=== PATIENT | female | born 1980 | race Caucasian/White ===

== ENCOUNTER 2021-11-29 19:38 | Emergency (ER) | payer SELFPAY ==
--- NOTE | 2021-11-29 19:41 | ED.EAR ---
HPI - Ear Problem General Chief complaint: Ear Stated complaint: Ear Pain Time Seen by Provider: 11/29/21 19:52 Source: patient and RN notes reviewed Mode of arrival: ambulatory Limitations: no limitations History of Present Illness HPI Narrative: 41-year-old female presents with concern for 1 month history of right ear pain and several month history of sinus congestion and pain. Reports history with sinus problems. She denies recent cough, shortness of breath, fever, bodies, chills, sweats. Denies known contacts. Reports several [id number] interventions without relief Complaint: ear pain Related Data Allergies Allergy/AdvReac Type Severity Reaction Status Date / Time clindamycin Allergy Mild Other Verified 11/29/21 19:50 Review of Systems Review of Systems: CONSTITUTIONAL: Denies malaise, chills, sweats, or fever. EYES: Denies visual changes, redness, or discharge. ENT: Denies rhinorrhea. Reports congestion, sinus pain, otalgia. Denies sore throat. CARDIOVASCULAR: Denies chest pain, palpitations, or edema. RESPIRATORY: Denies cough. Denies dyspnea. GASTROINTESTINAL: Denies abdominal pain, nausea, vomiting, diarrhea SKIN: Denies rash or itching. MUSCULOSKELETAL: Denies myalgia. NEUROLOGIC: Denies headache. All systems reviewed & are unremarkable except as noted in HPI and below PMFSH Comments At time of signature, agree with nursing past medical, surgical, social and family history. There is no relevant family history pertinent to the presenting complaint Exam Narrative: GENERAL: Well-appearing, well-nourished, and in no acute distress. HEAD: Normocephalic EYES: PERRLA, conjunctivae clear ENT: Nares clear, turbinates edematous and erythematous, clear discharge. Mucous membranes moist. TM pearly jordan with dull light reflex bilaterally; no tragal tenderness. Oropharynx not erythematous without lesions. Tonsils not enlarged and without exudate, no drooling, no hoarseness, no trismus, uvula midline. NECK: Supple. No lymphadenopathy CHEST: Clear to auscultation, breath sounds equal. No wheezing, rhonchi, rales, or stridor. No respiratory distress, speaks in full sentences. HEART: Regular rate and rhythm. No murmur heard. SKIN: Warm, dry, no rash. NEURO: Alert and oriented x3. PSYCH: Normal mood and affect Course Course Emergency Course: Patient is aware of diagnosis, understands and agrees to treatment plan. Anticipatory guidance given. Patient agrees to follow-up as directed and is aware of reasons to seek care at the emergency department. Portions of this record may have been created with voice recognition software Vital Signs Vital signs: Reviewed. Medical Decision Making MDM Narrative Medical decision making narrative: Differential diagnosis considered: Metz virus, strep pharyngitis, allergic rhinitis, upper respiratory tract infection, sinusitis, rhinosinusitis, nasopharyngitis. viral pharyngitis, otitis media, otitis externa, pneumonia, bronchitis, viral cough syndrome, viral syndrome, and influenza. Exam findings show no acute concerns or changes; patient is non-toxic appearing and is in no distress. Patient is appropriate for outpatient treatment and follow-up. Critical Care Time Critical Care Time Critical Care Time: No Discharge Plan Discharge Clinical Impression: Acute bacterial sinusitis Patient Disposition: Home, Self-Care Condition: Stable Instructions: Antibiotic Form, Sinusitis (ED) Additional Instructions: Take antibiotics and steroids as directed Nonprescription pain medications, such as acetaminophen (eg, Tylenol) or ibuprofen (eg, Motrin, Advil), are recommended for pain. Medications to thin secretions (such as guaifenesin) may help to clear mucus. Please follow-up with your primary care doctor for reevaluation upon completion of the antibiotics. If you cannot follow-up with your primary care doctor please go to the ED for any urgent issues. If you have any worsening of
[2021-11-29 19:44] VITALS: BP 149/96; PULSE 86; RESP 18; TEMP 37.1; O2SAT 98
[2021-11-29 19:51] VITALS: BP 149/96; PULSE 86; RESP 18; TEMP 37.1; O2SAT 98
== END 2021-11-29 20:00 | disposition home or self-care (01) ==
PROVIDERS: Emergency Provider Nurse Practitioner
DX: J01.90 Acute sinusitis, unspecified (principal)
CPT/HCPCS: 99213; G0463

== ENCOUNTER 2022-09-24 17:47 | Emergency (ER) | payer OTHER, SELFPAY ==
[2022-09-24 18:00] VITALS: BP 169/101; PULSE 78; RESP 20; TEMP 36.8; O2SAT 100
--- NOTE | 2022-09-24 18:00 | ED.URI ---
HPI - URI/Sore Throat General Chief Complaint: Upper Respiratory Infection Stated Complaint: Sore Throat Time Seen by Provider: 09/24/22 18:00 Source: patient and RN notes reviewed History of Present Illness HPI Narrative: Patient is a 42-year-old female who presents the urgent care with complaints of sore throat and right ear pain for the last week. Patient denies any fever, nausea or vomiting. States that she has been taking Benadryl for her symptoms. Patient states that she does have a chronic sinusitis but denies of any sinus surgery. States that she had a negative COVID test at home. No other acute complaints. No acute distress noted. Patient aware of the plan of care. Some parts of this dictation were generated by voice recognition software and may contain typographical and/or grammatical inaccuracies. Related Data Home Medications Medication Instructions Recorded Confirmed No Home Medications 09/24/22 09/24/22 Allergies Allergy/AdvReac Type Severity Reaction Status Date / Time clindamycin Allergy Mild Other Verified 09/24/22 18:21 Review of Systems Review of Systems: CONSTITUTIONAL: Denies fever, chills, or sweats. EYES: Denies visual changes, redness, or discharge. ENT: Reports of chronic postnasal drainage and sore throat with right otalgia CARDIOVASCULAR: Denies chest pain, palpitations, or edema. RESPIRATORY: Denies cough or dyspnea. GASTROINTESTINAL: Denies abdominal pain, nausea, vomiting, or diarrhea. GENITOURINARY: Denies dysuria or hematuria. SKIN: Denies rash or itching. MUSCULOSKELETAL: Denies back pain, joint pain, or myalgia. NEUROLOGIC: Denies headache, numbness, or weakness. All other systems reviewed are negative, except as documented in HPI. PMFSH Comments At the time of my signature, I reviewed and agree with the nursing past medical, surgical, social, and family history. There is no relevant family history pertinent to the patient complaint. Exam Narrative: GENERAL: This is a well-nourished, well-developed patient, in no apparent distress. HEAD: normocephalic, atraumatic. EYES: PERRL. Sclera clear/white. Vision is grossly intact. EARS: External ears normal, auditory canals clear and without drainage, mild bilateral station tube dysfunction TMs normal without perforation. Hearing grossly intact. NOSE: External nose normal with no obvious nasal discharge, nares without redness, no rhinorrhea. THROAT: Mucous membranes moist, posterior pharynx clear. Moderate postnasal drainage NECK: Neck supple CARDIOVASCULAR: Regular rate and rhythm without murmurs, gallops, or rubs. RESPIRATORY: Clear to auscultation. Breath sounds equal bilaterally. No wheezes, rales, or rhonchi. SKIN: warm, intact with no suspicious lesions or rash, good texture and turgor. NEURO: awake, alert, and oriented to person, place and time. There were no obvious focal neurologic abnormalities. EXTREMITIES: No clubbing, cyanosis. Mild nonpitting right lower extremity edema that is recurrent and chronic Course Course Level of Care: Express Care Visit Vital Signs Vital signs: Vital Signs Temperature 98.3 F 09/24/22 18:00 Pulse Rate 78 09/24/22 18:00 Respiratory Rate 20 09/24/22 18:00 Blood Pressure 169/101 H 09/24/22 18:00 Pulse Oximetry 100 09/24/22 18:00 Oxygen Delivery Room Air 09/24/22 18:00 Temperature 98.3 F 09/24/22 18:21 Pulse Rate 78 09/24/22 18:21 Respiratory Rate 20 09/24/22 18:21 Blood Pressure 169/101 H 09/24/22 18:21 Pulse Oximetry 100 09/24/22 18:21 Oxygen Delivery Room Air 09/24/22 18:21 Reviewed-patient is informed that they may have pre-hypertension or hypertension based on a blood pressure reading in the department. I recommend the patient call the primary care provider listed on their discharge instructions or a physician of their choice this week to arrange follow-up for further evaluation of possible pre-hypertension or hypertension. MDM - URI/Sore Throat
[2022-09-24 18:21] VITALS: BP 169/101; PULSE 78; RESP 20; TEMP 36.8; O2SAT 100
== END 2022-09-24 18:35 | disposition home or self-care (01) ==
PROVIDERS: Emergency Provider Nurse Practitioner Family
DX: J32.9 Chronic sinusitis, unspecified (principal); J02.9 Acute pharyngitis, unspecified
CPT/HCPCS: 87081; 87880; 99213; G0463

== ENCOUNTER 2023-09-01 17:30 | Emergency (ER) | payer OTHER, SELFPAY ==
[2023-09-01 17:36] VITALS: BP 151/92; PULSE 98; RESP 18; TEMP 37.1; O2SAT 100
--- NOTE | 2023-09-01 17:45 | ED.GENADULT ---
HPI - General Adult General Chief complaint: Unspecified Stated complaint: Hemorroid Flare up History of Present Illness HPI narrative: Patient presents with a hemorrhoid flare. Patient states she has a history of hemorrhoids and has had recent increase liquid stools and has caused inflammation to hemorrhoids. Denies any blood in stools no abdominal pain no rectal bleeding. Patient states she recently started new protein shakes were which were high and magnesium and caused her to have diarrhea stools. Patient has discontinued the protein shakes and has started on a bland diet.. Related Data Allergies Allergy/AdvReac Type Severity Reaction Status Date / Time clindamycin Allergy Mild Other Verified 09/01/23 17:32 Review of Systems Review of Systems: CONSTITUTIONAL: Denies fever, chills, or sweats. EYES: Denies visual changes, redness, or discharge. ENT: Denies rhinorrhea, congestion, sore throat, or otalgia. CARDIOVASCULAR: Denies chest pain, palpitations, or edema. RESPIRATORY: Denies cough or dyspnea. GASTROINTESTINAL: Denies abdominal pain, nausea, vomiting, or diarrhea. GENITOURINARY: Denies dysuria or hematuria. SKIN: Denies rash or itching. MUSCULOSKELETAL: Denies back pain, joint pain, or myalgia. NEUROLOGIC: Denies headache, numbness, or weakness. PSYCHIATRIC: Denies anxiety or depression. PMFSH Comments At time of signature, agree with nursing past medical, surgical, social and family history. There is no relevant family history pertinent to the presenting complaint Exam Narrative: GENERAL: Well-appearing, well-nourished, and in no acute distress. HEAD: Normocephalic, atraumatic. EYES: PERRLA and EOMI. ENT: Nares clear, no rhinorrhea or epistaxis. Mucous membranes moist. NECK: Supple. CHEST: Clear to auscultation. No respiratory distress. HEART: Regular rate and rhythm. No murmur heard. Normal peripheral pulses. ABDOMEN: Soft, nontender, nondistended, normal active bowel sounds. EXTREMITIES: Normal range of motion. No edema. SKIN: Warm, dry, no rash. NEURO: No focal deficits. Alert and oriented x3. Marsha Coma Scale Eye Opening: Spontaneous 4 Marsha Coma Scale Motor: Obeys Commands 6 Marsha Coma Scale Verbal: Oriented 5 [place] Coma Scale Total 15 GI: Rectal Exam: normal sphincter tone and hemorrhoids (swollen external hemorrhoid ) Course Course Level of Care: Express Care Visit Vital Signs Vital signs: Vital Signs Temperature 37.1 C 09/01/23 17:36 Pulse Rate 98 09/01/23 17:36 Respiratory Rate 18 09/01/23 17:36 Blood Pressure 151/92 H 09/01/23 17:36 Pulse Oximetry 100 09/01/23 17:36 Oxygen Delivery Room Air 09/01/23 17:36 Temperature 37.1 C 09/01/23 17:36 Pulse Rate 98 09/01/23 17:36 Respiratory Rate 18 09/01/23 17:36 Blood Pressure 151/92 H 09/01/23 17:36 Pulse Oximetry 100 09/01/23 17:36 Oxygen Delivery Room Air 09/01/23 17:36 Please EDDIE schedule a followup visit with your personal physician for further evaluation and treatment. Including recheck and discussion of your blood pressure. If your symptoms persist, change or worsen significantly before you can contact your personal physician then please, without delay, go to the emergency department for further evaluation Medical Decision Making Vital Signs Vital Signs: Vital Signs Temperature 37.1 C 09/01/23 17:36 Pulse Rate 98 09/01/23 17:36 Respiratory Rate 18 09/01/23 17:36 Blood Pressure 151/92 H 09/01/23 17:36 Pulse Oximetry 100 09/01/23 17:36 Oxygen Delivery Room Air 09/01/23 17:36 Temperature 37.1 C 09/01/23 17:36 Pulse Rate 98 09/01/23 17:36 Respiratory Rate 18 09/01/23 17:36 Blood Pressure 151/92 H 09/01/23 17:36 Pulse Oximetry 100 09/01/23 17:36 Oxygen Delivery Room Air 09/01/23 17:36 Discharge Plan Discharge Clinical Impression: Acute hemorrhoid Patient Disposition: Home, Self-Care Condition: Stable Instructions:
== END 2023-09-01 17:50 | disposition home or self-care (01) ==
PROVIDERS: Emergency Provider Nurse Practitioner Family
DX: K64.9 Unspecified hemorrhoids (principal)
CPT/HCPCS: 99213; G0463

== ENCOUNTER 2023-10-07 12:48 | Emergency (ER) | payer OTHER, SELFPAY ==
--- NOTE | ~2023-10-07 | XR_ITS ---
EXAMINATION: XR soft tissue neck INDICATION: Neck pain TECHNIQUE: Three views of the neck soft tissues are obtained. COMPARISON: None available FINDINGS: The neck soft tissues are unremarkable. The epiglottis appears normal in size. There is mil d cervical spondylosis. IMPRESSION: 1. Unremarkable neck soft tissues. Reviewed, dictated and finalized at location B. 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
[2023-10-07 12:54] VITALS: BP 188/108; PULSE 93; RESP 20; TEMP 36.9; O2SAT 98
--- NOTE | 2023-10-07 13:31 | ED.GENADULT ---
HPI - General Adult General Chief complaint: Upper Respiratory Infection Stated complaint: ear/throat Source: patient Mode of arrival: ambulatory History of Present Illness HPI narrative: [age] year old female presented for complaint of pain under the right jaw radiating to the right ear intermittently for 5 years. States after right upper wisdom tooth was extracted 5 years ago she continued to have pain, then she had some improvement to the area after the remaining portion of the wisdom tooth was 'coughed up' 2 years ago. Patient has seen 8 dentists, ENT, and back joiner since then for this complaint. Concerned that no one is helping her. Requesting xray to see if she has portion of tooth remaining. Endorses occasional nausea, ear ringing, jaw popping. Unable to tolerate medication for pain including NSAIDs, stating the pain becomes intensified after the medication wears off. Contacted 2 ENT's and was unable to be seen for a few weeks. Of note, bp elevated, states she cannot take BP medication. Related Data Home Medications Medication Instructions Recorded Confirmed No Home Medications 10/07/23 10/07/23 Allergies Allergy/AdvReac Type Severity Reaction Status Date / Time clindamycin Allergy Mild Other Verified 10/07/23 13:33 Review of Systems Review of Systems: CONSTITUTIONAL: Denies body aches, fever, chills ENT: Denies rhinorrhea, congestion, sore throat, Reports right jaw and ear pain CARDIOVASCULAR: Denies chest pain, palpitations RESPIRATORY: Denies cough or dyspnea. SKIN: Denies rash, itching, or wounds. MUSCULOSKELETAL: Denies myalgia. NEUROLOGIC: Denies headache, numbness, tingling, or weakness. [facility] Past Medical History Medical History (Updated 10/07/23 @ 14:41 by Alisa Jauregui, JOEL) Hypertension Comments At time of signature, I have reviewed and agree with nursing past medical, surgical, social and family history unless otherwise noted. Please see nursing chart for further information. There is no relevant family history pertinent to the presenting complaint Exam Narrative: GENERAL: well-appearing HEAD: Normocephalic, atraumatic. EYES: EOMI. No redness or drainage. Conjunctivae normal. ENT: No gum swelling or dental abscess. Mucous membranes pink and moist. TMs normal bilaterally, no tragal or mastoid tenderness. Throat normal. Uvula midline. Partial upper plate. NECK: Normal AROM. No lymphadenopathy. No swelling or induration below mandible. CHEST: No respiratory distress. Clear to auscultation. HEART: Regular rate and rhythm. No murmur appreciated. SKIN: Warm, dry, no rash. Normal skin turgor. NEURO: No focal deficits. Alert and oriented x3. Gait steady. PSYCH: anxious, talkative Course Course Emergency Course: Patient is aware of diagnosis, understands and agrees to treatment plan. Anticipatory guidance given. Patient agrees to follow-up as directed and is aware of reasons to seek care at the emergency department. Portions of this record may have been created with voice recognition software Level of Care: Express Care Visit Vital Signs Vital signs: Vital Signs Temperature 98.5 F 10/07/23 12:54 Pulse Rate 93 10/07/23 12:54 Respiratory Rate 20 10/07/23 12:54 Blood Pressure 188/108 H 10/07/23 12:54 Pulse Oximetry 98 10/07/23 12:54 Oxygen Delivery Room Air 10/07/23 12:54 Temperature 98.5 F 10/07/23 12:54 Pulse Rate 93 10/07/23 12:54 Respiratory Rate 20 10/07/23 12:54 Blood Pressure 188/108 H 10/07/23 12:54 Pulse Oximetry 98 10/07/23 12:54 Oxygen Delivery Room Air 10/07/23 12:54 Medical Decision Making MDM Narrative Medical decision making narrative: Results of x-ray reviewed with patient. Discussed physical exam findings. Pt looked into holistic care practitioners in the area while waiting for xray results and states she wants to establish with them regarding the pain and the elevated bp. Advised she is
== END 2023-10-07 14:45 | disposition home or self-care (01) ==
PROVIDERS: Emergency Provider Nurse Practitioner Family
DX: R51.9 Headache, unspecified (principal); I10 Essential (primary) hypertension
CPT/HCPCS: 70360; 99213; G0463

== ENCOUNTER 2024-12-09 18:44 | Emergency (ER) | payer OTHER, SELFPAY ==
--- NOTE | 2024-12-09 19:00 | ED.URI ---
HPI - URI/Sore Throat General Chief Complaint: Upper Respiratory Infection Stated Complaint: Fever/Cough/Sore Throat/Body Aches Source: patient and RN notes reviewed Mode of arrival: ambulatory Limitations: no limitations History of Present Illness HPI Narrative: 44 y/o female presented for c/o cough x3 weeks. Endorses associated burning in the chest and upper back, and a sore throat as well. Taking Benadryl and Advil. Son with a cough as well. Denies sob, wheezing, n/v/d/f/c. MD elicited complaint: cough Related Data Allergies Allergy/AdvReac Type Severity Reaction Status Date / Time clindamycin Allergy Mild Other Verified 12/09/24 19:16 Review of Systems Review of Systems: ROS per HPI [facility] Past Medical History Medical History Hypertension Exam Narrative: GENERAL: well-appearing EYES: PERRLA, conjunctivae clear ENT: Mucous membranes moist. TM pearly jordan with dull light reflex bilaterally; no tragal tenderness. Oropharynx not erythematous without lesions or exudate, not tonsillar enlargemnt, no drooling, no hoarseness, no trismus, uvula midline. No tripod positioning, muffled voice, soft palate or pharyngeal wall bulging NECK: Supple. No lymphadenopathy CHEST: Clear to auscultation, breath sounds equal. No wheezing, rhonchi, rales, or stridor. No respiratory distress, speaks in full sentences. HEART: Regular rate and rhythm. No murmur heard. SKIN: Warm, dry NEURO: Alert and oriented x3. PSYCH: Normal mood and affect Course Course Emergency Course: Patient is aware of diagnosis, understands and agrees to treatment plan. Anticipatory guidance given. Patient agrees to follow-up as directed and is aware of reasons to seek care at the emergency department. Portions of this record may have been created with voice recognition software Level of Care: Express Care Visit Vital Signs Vital signs: Vital Signs Temperature 99 F 12/09/24 19:04 Pulse Rate 98 12/09/24 19:04 Respiratory Rate 20 12/09/24 19:04 Blood Pressure 172/98 H 12/09/24 19:04 Pulse Oximetry 98 12/09/24 19:04 Oxygen Delivery Room Air 12/09/24 19:04 Temperature 99 F 12/09/24 19:04 Pulse Rate 98 12/09/24 19:04 Respiratory Rate 20 12/09/24 19:04 Blood Pressure 172/98 H 12/09/24 19:04 Pulse Oximetry 98 12/09/24 19:04 Oxygen Delivery Room Air 12/09/24 19:04 reviewed MDM - URI/Sore Throat MDM Narrative Medical decision making narrative: Discussed physical exam findings, negative flu, COVID, and strep. Advised supportive measures and signs/symptoms to go to the ER. Pt is appropriate for outpt treatment and f/u. Differential Diagnosis Differential diagnosis: Likely upper respiratory infection, sinusitis and viral infection Lab Data Labs: Lab Results 12/09/24 Range/Units 19:25 POC Influenza A Ag Negative (Negative) POC Influenza B Ag Negative (Negative) POC SARS CoV-2 Ag Negative (Negative) POC Grp A Strep Screen Negative (Negative) Discharge Plan Discharge Clinical Impression: Bronchitis Patient Disposition: Home, Self-Care Condition: Stable Instructions: Antibiotic Form, Acute Bronchitis (ED) Additional Instructions: Your blood pressure reading was elevated (above 120/80) please follow-up with your primary care provider for further evaluation and management. If you develop worsening Blood Pressure symptoms, (headache, vision changes, dizziness, vomiting, chest pain, etc) go to the ER. Call 911. Flu and COVID negative Rapid strep swab was negative today You will be notified in a few days if the culture comes back positive for strep if symptoms are due to a viral illness, it is not treated with antibiotics. Viral symptoms can be present for up to 10-14 days. Recommendations: Flonase spray and Zyrtec for sinus congestion Cough syrup may cause drowsiness; avoid driving or take it at night time. Tylenol every 8 hours as needed for pain/fever Soft foods, cool liquids, warm tea. Gargle with warm saltwater twice a day. Chloraseptic spray and throat lozenges. Rest and stay hydrated. --Follow up with your PCP --Go to the ER immediately if you cannot swallow your saliva, trouble breathing/wheezing, throat swelling, pain is persistent and severe Patient Language: Arabic Prescriptions: New methylprednisolone [Medrol (Ney)] 4 mg tablets,dose pack See Rx Instructions .ROUTE .COMPLEX Qty: 21 0RF Rx Instructions: orally per package directions amoxicillin-pot clavulanate 875-125 mg tablet 1 tablet PO Q12H 7 Days Qty: 14 0RF Follow-up/Referrals: PHYSICIAN NOT ON STAFF,NONSTAFF [Primary Care Provider] - Time of Disposition: 19:31
[2024-12-09 19:04] VITALS: BP 172/98; PULSE 98; RESP 20; TEMP 37.2; O2SAT 98
[2024-12-09 19:29] LABS: EDCOVIDSCREEN Negative (Negative); EDINFLUASCREEN Negative (Negative); EDINFLUBSCREEN Negative (Negative); EDSTREPNEGPOS1 Negative (Negative)
== END 2024-12-09 19:35 | disposition home or self-care (01) ==
PROVIDERS: Emergency Provider Nurse Practitioner Family
DX: J20.9 Acute bronchitis, unspecified (principal); I10 Essential (primary) hypertension; Z20.822 Contact with and (suspected) exposure to COVID-19
CPT/HCPCS: 87081; 87426; 87804; 87880; 99213; G0463

== ENCOUNTER 2025-11-12 19:15 | Emergency (ER) | payer OTHER, SELFPAY ==
--- OUTSIDE RECORDS SUMMARY | 2018-07-30 06:30 | XMS_ITS | Continuity of Care Document ---
Author Organization [email or web address] Address [address] [place] [address] Phone Care Team Providers Care Rental Clerk Name Role Phone Modesto Johnson PT Unavailable Unavailable Procedures Procedure Date Therapeutic Exercise Manual Therapy Hot or Cold Pack Therapeutic Exercise Manual Therapy Hot or Cold Pack Therapeutic Exercise Manual Therapy Hot or Cold Pack Therapeutic Exercise Manual Therapy Hot or Cold Pack Therapeutic Exercise Manual Therapy Hot or Cold Pack Therapeutic Exercise Manual Therapy Hot or Cold Pack Therapeutic Exercise Manual Therapy Hot or Cold Pack PT Evaluation Moderate Complexity Therapeutic Exercise Manual Therapy Hot or Cold Pack Advance Directives Directive Yes / No Effective Date File Name No Information Encounters Encounter Description Practice Location Reason(s) For Visit Diagnoses Date Provider Providers Copied on Encounter [facility], [place], [place], [id number], [place] tel:[phone] Vanlue CervicalgiaRad iculopathy, cervical regionSprain of ligaments of cervical spine, initial encounter Alex Salvador. . [facility], [place], [place], [id number], tel:[phone] Vanl[place] CervicalgiaRad iculopathy, cervical regionSprain of ligaments of cervical spine, initial encounter Johnson Modesto. . [facility], [place], [place], [id number], tel:[phone] Octaviano CervicalgiaRad iculopathy, cervical regionSprain of ligaments of cervical spine, initial encounter Johnson Modesto. . [facility], [place], [place], [id number], [place] tel:[phone] Octaviano CervicalgiaRad iculopathy, cervical regionSprain of ligaments of cervical spine, initial encounter Johnson Modesto. . [facility], [place], [place], [id number], tel:[phone] Octaviano CervicalgiaRad iculopathy, cervical regionSprain of ligaments of cervical spine, initial encounter Johnson Modesto. . [facility], [place], [place], [id number], [place] tel:[phone] Vanlue CervicalgiaRad iculopathy, cervical regionSprain of ligaments of cervical spine, initial encounter Johnson Modesto. . [facility], [place], [place], [id number], [place] tel:[phone] Vanlue CervicalgiaRad iculopathy, cervical regionSprain of ligaments of cervical spine, initial encounter Johnson Modesto. . [facility], [place], [place], [id number], [place] tel:[phone] Vanlue CervicalgiaRad iculopathy, cervical regionSprain of ligaments of cervical spine, initial encounter Johnson Modesto. . Family History Family Member Type Diagnosis Age At Onset No Information Payers Payer name Insurance type Covered democrat ID Authoriza tion(s) Najma Law LI [id number] Social History Type Description Quantity Date Captured Comments Sex Female Smoking Status No Information Chief Complaint And Reason For Visit No Information Reason For Referral Reason For Referral No Information History Of Present Illness Encounter Date Complaint History Of Prese nt Illness No Information Functional Status Date Functional Assessmen t No Information Instructions Date Instruction Additional Infor mation No Information Assessments Type Assessment Date No Information Patient Care Teams Name Effective Dates (start - stop) Status Members No Information
--- OUTSIDE RECORDS SUMMARY | 2025-11-12 19:20 | XMS_ITS | Clinical Summary ---
Author Organization [facility] Address [address] [place] [address] Care Team Providers Care Corporate Wellness Coordinator Name Role Phone Tisha Justice DO Unavailable Hilary Winn MD Unavailable [phone] Juanis Spears NP Primary Care Provider Allergies Active Allergy Reactions Criticality Noted Date Comments Amoxicillin Other (See comments) Low 08/13/2018 States that when she takes it with prednisone it makes her excessively thirsty. Clindamycin Unknown Low 11/29/2021 Nifedipine Anaphylaxis High 02/20/2023 Also with Nifedipine, pt complains she could not feel upper ext, lethargy, vomiting. Prednisone Other (See comments) Low 03/19/2019 States that when she takes it with Amoxicillin it makes her excessively thirsty. Medications ondansetron (ZOFRAN) 4 mg tablet Take 1 tablet (4 mg total) by mouth every 6 (six) hours 12 tablet 3 Active Additional Information Patient not taking.Reported on 08/31/2025 losartan (COZAAR) 25 mg tabletIndicatio ns:Hypertension , essential Take 1 tablet (25 mg total) by mouth daily 60 tablet 5 08/31/20 26 Active Active Problems Problem Noted Date Diagnosed Date Chronic left shoulder pain 05/18/2025 Assessment & Plan (05/18/2025 1:29 PM CDT): -Chronic, not at goal -Patient endorses experiencing left shoulder pain for several months now which she believes she may have slept on her shoulder wrong -Patient endorses using supportive care measures which provides some relief -X-ray imaging of left shoulder and physical therapy ordered -Encouraged patient to reach out to office if not improved -Continue current treatment plan Orders: XR Shoulder Left 2+ Vw; Future Cyst of left kidney 03/24/2024 Assessment & Plan (03/24/2024 1:28 PM CDT): -chronic -patient reports having ongoing left flank pain which she has had evaluated -patient has known left ovarian cyst and a cyst on her left kidney -patient reports her flank pain is not very bad right now, but she does want further investigation of this left kidney cyst -ultrasound ordered of left kidney Encounter for screening colonoscopy 03/12/2024 Benign cyst of breast, right 03/12/2024 Assessment & Plan (03/12/2024 1:36 PM CDT): -chronic, stable -on previous mammogram, cyst of breast had been found -patient had diagnostic mammogram which found the cyst to be benign -patient denies any significant issues or new lumps in her breast -annual screening order placed Class 1 obesity due to exces s calories with body mass index (BMI) of 31.0 to 31.9 in adult 01/31/2024 Assessment & Plan (08/31/2025 1:18 PM CDT): Wt Readings from Last 3 Encounters: 08/31/25 85.3 kg (188 lb) 07/07/25 85.3 kg (188 lb) 05/18/25 87 kg (191 lb 14.4 oz) Body mass index is 31.28 kg/m . -Chronic, not at goal of <30 bmi -Discussed recommendations for exercise at least 30 minutes moderate to vigorous exercise as tolerated most days of the week. (minimum 150 minutes weekly) -Discussed importance of well-balanced diet. Assessment & Plan (05/18/2025 1:29 PM CDT): Wt Readings from Last 3 Encounters: 05/18/25 87 kg (191 lb 14.4 oz) 06/23/24 87.1 kg (192 lb) 03/24/24 87.1 kg (192 lb) Body mass index is 31.93 kg/m . -Stable, not at goal of <30 bmi -Discussed recommendations for exercise at least 30 minutes moderate to vigorous exercise as tolerated most days of the week. (minimum 150 minutes weekly) -Discussed importance of well-balanced diet. Assessment & Plan (06/23/2024 4:29 PM CDT): Wt Readings from Last 3 Encounters: 06/23/24 87.1 kg (192 lb) 03/24/24 87.1 kg (192 lb) 03/10/24 87.9 kg (193 lb 11.2 oz) Body mass index is 31.95 kg/m . -Stable, not at goal of <30 bmi -Discussed recommendations for exercise at least 30 minutes moderate to vigorous exercise as tolerated most days of the week. (minimum 150 minutes weekly) -Discussed importance of well-balanced diet. Assessment & Plan (03/24/2024 11:50 AM CDT): Wt Readings from Last 3 Encounters: 03/24/24 87.1 kg (192 lb) 03/10/24 87.9 kg (193 lb 11.2 oz) 01/31/24 88.6 kg (195 lb 4.8 oz) Body mass index is 33.39 kg/m . -Stable, not at goal of <30 bmi -Discussed recommendations for exercise at least 30 minutes moderate to vigorous exercise most days of the week. (minimum 150 minutes weekly) -Discussed importance of well-balanced diet. Assessment & Plan (03/12/2024 1:28 PM CDT): Wt Readings from Last 3 Encounters: 03/10/24 87.9 kg (193 lb 11.2 oz) 01/31/24 88.6 kg (195 lb 4.8 oz) 11/05/23 82.6 kg (182 lb) Body mass index is 33.69 kg/m . -Stable, not at goal of <30 bmi -Discussed recommendations for exercise at least 30 minutes moderate to vigorous exercise most days of the week. (minimum 150 minutes weekly) -Discussed importance of well-balanced diet. Assessment & Plan (01/31/2024 10:19 PM PIT LABORER): Wt Readings from Last 3 Encounters: 01/31/24 88.6 kg (195 lb 4.8 oz) 11/05/23 82.6 kg (182 lb) 05/20/23 86 kg (189 lb 9.5 oz) Body mass index is 33.75 kg/m . -Chronic, weight gain noted -Discussed recommendations for exercise at least 30 minutes moderate to vigorous exercise most days of the week. (minimum 150 minutes weekly) -Discussed importance of well-balanced diet. Allergic reaction 01/31/2024 Assessment & Plan (01/31/2024 11:19 PM PIT LABORER): -acute, 6 day onset -reports rash on back of head and shoulder, throat tightness, leg swelling, fatigue -patient believes this is due to recent hair dye -also reports previous similar reaction when dying hair before -hydroxyzine a Medrol Dosepak prescribed Allergic dermatitis 01/31/2024 Assessment & Plan (01/31/2024 11:02 PM PIT LABORER): -acute, 6 day onset -rash localized to back of head and shoulders -patient reports she believes this is due to hair dye she recently used -patient reports she has had a reaction like this before also related to the same hair dye -patient reports using OTC Benadryl cream -hydroxyzine and Medrol Dosepak prescribed Preventative health care 02/14/2023 Assessment & Plan (05/18/2025 1:29 PM CDT): - New or chronic worsening conditions: elevated blood pressure - Mental health: anxiety, mildly bothersome - Dental health: Up to date with regular dental care and cleaning. Discussed importance of regular tooth brushing, flossing, and dental visits. - Nutrition: Stressed importance of moderation in sodium/caffeine intake, saturated fat and cholesterol, caloric balance, sufficient intake of fresh fruits, vegetables - Exercise: Stressed the importance of regular exercise - Immunizations: Age and sex appropriate immunizations reviewed and offered - Cervical Cancer screening: Up-to-date - Breast Cancer screening: Recommended, order placed - Colon cancer screening: Recommended, order placed - control: none Orders: CBC with auto differential; Future Comprehensive metabolic panel; Future Assessment & Plan (03/12/2024 1:30 PM CDT): -Discussed recommendations for exercise at least 30 minutes moderate to vigorous exercise most days of the week. (minimum 150 minutes weekly) -Discussed importance of well-balanced diet. -Cancer screening: recommended colon cancer screening start age 45; cervical cancer screening- last pap 2020; annual clinical breast exam and monthly self breast exam encouraged. -Immunizations: up to date, yearly influenza vaccines (declined) -Continue routine dental and vision care. Assessment & Plan (02/14/2023 3:20 PM CDT): - Acute concerns: discussed about hypertension - Mental health: significant psychiatric/mental health conditions affecting her day to day functioning - anxiety mainly stemming from personal/family issues - Immunizations: Age and sex appropriate immunizations reviewed - Cervical Cancer screening: up to date - Breast Cancer screening: up to date, scheduled for diagnostic mammogram after abnormal screening mammogram - Colon cancer screening: not due Well woman exam 07/19/2022 Assessment & Plan (07/19/2022 12:35 PM CDT): Pap done at pt request She was encouraged to continue her yearly paps with her pcp. Vaginal irritation 06/14/2022 Assessment & Plan (06/14/2022 11:26 AM CDT): vp product management done Will await results. Diastasis recti 02/16/2022 Assessment & Plan (02/16/2022 4:36 AM CDT): new diagnosis, asymptomatic, discussed etiology, work on abdominal muslces exercises and if bothersome can be seen by General Surgery to have it fixed History of 1 vaginal delivery at 35 weeks of Encounter for sterilization 01/04/2022 Overview (07/19/2022): S/p removal of tubes 07/2022 Assessment & Plan (07/19/2022 12:34 PM CDT): Doing well rto prn. Assessment & Plan (06/14/2022 11:25 AM CDT): Will plan to remove the tubes Will sign BTL papers as I am not sure if she needs or noth Assessment & Plan (01/04/2022 2:11 PM PIT LABORER): She would like to proceed. Will check with insurance. Wants btl. Will see if she needs tubal papers. Understands that it is permanent. 03/1000 chance of after with 1/3 being in the tube. Pelvic pain 02/28/2021 Assessment & Plan (02/28/2021 3:34 PM CDT): - patient complains of right sided pelvic pain, intermittent - she also has hx of right ovarian cyst - plan to obtain US transvaginal to evaluate for size, location of Cyst or other abnormality Irregular periods/menstrual cycles 11/22/2020 Assessment & Plan (05/22/2021 3:59 PM CDT): - she has noticed improvement in her menstrual cycles - has been fairly regular recently - she had hx of ovarian cysts in the past - Transvaginal US - done 05/2021 - normal findings of ovaries. No ovarian cysts were noted Assessment & Plan (02/22/2021 1:25 PM CDT): - she has noticed improvement in her menstrual cycles - has been fairly regular over the past 2- 3 months - will schedule her for well woman exam on next visit - states she has hx of ovarian cyst - to be discussed further Assessment & Plan (11/22/2020 10:28 AM PIT LABORER): - 10 month history of irregular periods - CBC and TSH within normal limits - thinks may get better once she has her root canal removed - will recheck on next visit, will do other labs +/- OBGYn referral if it is still an issue IASHWARYA (generalized anxiety disorder) 10/19/2020 Assessment & Plan (08/31/2025 1:18 PM CDT): -chronic, controlled -patient currently prescribed BuSpar 5 mg daily as needed -Patient does endorse experiencing occasional anxiety but did not find much benefit from it -patient denies any worsening of depressed mood, thoughts of harming themselves or others -patient reports she feels that she is doing okay without medication -encourage patient to reach out to office if anxiety worsens -continue current treatment plan Assessment & Plan (05/18/2025 1:29 PM CDT): -chronic, suboptimally controlled -patient currently does not require medication -Patient does endorse experiencing occasional anxiety -patient denies any worsening of depressed mood, thoughts of harming themselves or others -BuSpar 5 mg daily as needed prescribed -continue current treatment plan Orders: busPIRone (BUSPAR) 5 mg tablet; Take 1 tablet (5 mg total) by mouth daily as needed (anxiety) Assessment & Plan (02/14/2023 1:54 PM CDT): - chronic, uncontrolled - long standing problem, however at this time feels it is not affecting her day to day functioning - she tried Buspar but discontinued it shortly - having some personal issues with family that is affecting her mental health Assessment & Plan (11/22/2020 10:30 AM PIT LABORER): - long standing problem, however at this time feels it is not affecting her day to day functioning - she is not taking BUSPAR - will discontinue it at this time - f/u in 3 Months and we will review how she is doing Assessment & Plan (10/19/2020 9:08 AM PIT LABORER): - this appears to be a longstanding problem. In the past she has been on BuSpar with some desirable outcomes. Discussed and will be restarted here at 7.5 mg twice daily of BuSpar will be re-evaluated in about a month. Hypertension, essential 10/19/2020 Assessment & Plan (08/31/2025 1:18 PM CDT): BP Readings from Last 3 Encounters: 08/31/25 144/92 05/18/25 150/98 06/23/24 126/85 -chronic, suboptimally controlled -currently not taking any medication at this time -patient reports checking blood pressure regularly at home which have typically running 130-140/90s -encourage patient to continue low-sodium diet -will start losartan 25 mg daily -follow up in 6 weeks for re-evaluation -continue current treatment plan Orders: losartan (COZAAR) 25 mg tablet; Take 1 tablet (25 mg total) by mouth daily Assessment & Plan (05/18/2025 1:29 PM CDT): BP Readings from Last 3 Encounters: 05/18/25 150/98 06/23/24 126/85 03/24/24 130/82 -chronic, not well controlled -currently not taking any medication at this time -patient reports she has not been checking blood pressure regularly at home like she used to -encourage patient to continue low-sodium diet -Encourage patient to keep a close eye on blood pressure readings and may consider starting antihypertensive therapy if persistently running 140/90 -continue current treatment plan Assessment & Plan (06/23/2024 9:48 PM CDT): BP Readings from Last 3 Encounters: 06/23/24 126/85 03/24/24 130/82 03/10/24 154/90 -chronic, stable -currently not taking any medication at this time -patient reports checking blood pressure regularly at home which typically run 120 to 130/80 -patient reports she has been diligent about checking her blood pressures, she states she has not had any significantly elevated or low blood pressures -encourage patient to continue low-sodium diet -continue current treatment plan Assessment & Plan (03/24/2024 1:12 PM CDT): BP Readings from Last 3 Encounters: 03/24/24 130/82 03/10/24 154/90 01/31/24 140/90 -chronic, stable -currently not taking any medication at this time -patient reports checking blood pressure regularly at home -home blood pressure log brought back by patient, blood pressures more consistently running lower 130s -encouraged patient to continue keeping track of her blood pressures and we will defer starting medication at this time -encourage patient to continue low-sodium diet -continue current therapy Assessment & Plan (03/12/2024 1:35 PM CDT): BP Readings from Last 3 Encounters: 03/10/24 160/98 01/31/24 140/90 11/05/23 144/82 -chronic, stable -currently not taking any medication -patient reports checking blood pressure regularly at home -blood pressure log provided, patient instructed to check blood pressure twice a day -encourage patient to continue low-sodium diet -follow-up in 2 weeks for re-evaluation of elevated blood pressure Assessment & Plan (05/21/2023 10:37 AM CDT): BP Readings from Last 3 Encounters: 05/20/23 160/98 05/03/23 158/100 02/14/23 148/98 - noted to have elevated BP in the past and on outside clinic visits - have discussed about lifestyle modifications several times - she has history of BP medication use in the past, did not like how one medication made her feel and possibly caused her low BP - states she has tried 8 different medications - Losartan made her tired and blurred vision, she does not recall the other ones ( the only one she tolerated with procardia) - start procardia 30 mg daily in past but then stated made her feel lightheaded - she has videos of her checking her BP with normal readings at home on several occasions - follow low salt diet in mean time - monitor BP closely at this time, I have asked her to bring her blood pressure cuff with her on next visit - discussed with her risks of uncontrolled hypertension in the past - continue current management at this time Assessment & Plan (02/14/2023 2:06 PM CDT): - chronic, not at goal - noted to have elevated BP in the past and on outside clinic visits - have discussed about lifestyle modifications several times - I have discussed with her again on this visit and prior visits about medication use, still does not want to use medications and wants to only do lifestyle interventions - she has history of BP medication use in the past, did not like how one medication made her feel and possibly caused her low BP - discussed with her risks of uncontrolled hypertension - continue to check it at home, has had normal BP readings at home - states she has tried 8 different medications - Losartan made her tired and blurred vision, she does not recall the other ones ( the only one she tolerated with procardia) - start procardia 30 mg daily, script sent in - follow low salt diet in mean time - monitor BP closely at this time Assessment & Plan (02/16/2022 4:32 AM CDT): - chronic, not at goal - noted to have elevated BP in the past and on outside clinic visits - have discussed about lifestyle modifications several times - I have discussed with her again on this visit and prior visits about medication use, still does not want to use medications and wants to only do lifestyle interventions - she has history of BP medication use in the past, did not like how one medication made her feel and possibly caused her low BP - discussed with her risks of uncontrolled hypertension - continue to check it at home, has had normal BP readings at home - follow low salt diet Assessment & Plan (10/02/2021 10:26 AM CDT): - uncontrolled, not at goal - noted to have elevated BP in the past and on this visit - on last discussion had indicated interest in lifestyle management - I have discussed with her again on this visit about medication use, still does not want to use medications and wants to only do lifestyle interventions - she now reports in the past she was on BP medication about a year ago, did not like how one medication made her feel and possibly caused her low BP - discussed with her risks of uncontrolled hypertension - continue to check it at home, has had normal BP readings at home - follow low salt diet - will follow up with me in 2 months time Assessment & Plan (05/25/2021 4:15 AM CDT): - uncontrolled, not at goal - noted to have elevated BP in the past and on this visit - on last discussion had indicated interest in lifestyle management - I have discussed with her again on this visit about medication use, still does not want to use medications and wants to only do lifestyle interventions - she now reports in the past she was on BP medication about a year ago, did not like how one medication made her feel and possibly caused her low BP - discussed with her risks of uncontrolled hypertension - continue to check it at home, has had normal BP readings at home - follow low salt diet - will follow up with me in 2 months time Assessment & Plan (04/11/2021 3:57 PM CDT): - noted to have elevated BP in the past and on this visit - will recheck BP on this visit - on last discussion had indicated interest in lifestyle management - continue to check it at home, has had normal BP readings at home - recommend bringing BP cuff with her on next visit Assessment & Plan (02/22/2021 1:23 PM CDT): - noted to have elevated BP in the past and on this visit - on last discussion had indicated interest in lifestyle management - she has lost about 2 lbs since last visit - continue to check it at home - she is coming back in few weeks for well woman so will discuss options further Assessment & Plan (11/22/2020 10:31 AM PIT LABORER): - noted to have elevated BP - still mostly <130/90, at this time she would like to manage it with lifestyle - continue to check it at home and review also in office in 3 months Assessment & Plan (10/19/2020 9:09 AM PIT LABORER): - patient was found to have elevated blood pressure on this visit. Patient also had some elevated blood pressure readings in the past per history. Patient will be returning about a month for follow-up and still elevated at that visit we will consider starting her on blood pressure medications. History of recurrent miscarriages 10/19/2020 Assessment & Plan (10/19/2020 9:20 AM PIT LABORER): - 1st 1st trimester about 10 weeks - 2nd 24 week loss - 3rd - had cervical cerclage at 21 weeks but had miscarriage within 2 days of that with placental abruption - 4th she had more blood draws, started on progesterone at 14 weeks, went into labor at 28 weeks, was hospitalized for 7 weeks and 2 days Her child was born 36 days early Referred otalgia of right ear 09/29/2019 Assessment & Plan (10/12/2020 8:28 PM PIT LABORER): Follow up with Dentist or Oral Surgeon Assessment & Plan (09/29/2019 11:30 AM CDT): Continue TMJ dysfunction Handout instructions, follow up with Endodonist Dysphagia 07/28/2019 Assessment & Plan (10/19/2020 9:11 AM PIT LABORER): - patient has been evaluated by endoscopy with no abnormal findings. Patient continues to follow-up with ENT. Assessment & Plan (07/28/2019 3:15 PM CDT): long-term dysphagia dificulty getting solids down. This with the posibility of GERD adding to her numerous other sx. Also has chronic constipation and colooscopy MMA 2002. I advised daily miralax. EGD soon. Chronic migraine without aur a without status migrainosus, not intractable 03/19/2019 Assessment & Plan (05/18/2025 1:29 PM CDT): -chronic, controlled -patient currently takes OTC medication -patient reports having migraine headache 1-2 month -encourage patient to use p.r.n. migraine medication if needs so -continue current treatment plan Occipital neuralgia of right side 03/19/2019 Assessment & Plan (04/28/2020 4:07 PM CDT): Follow up with Neurologist Dysfunction of right eustachian tube 02/04/2019 Assessment & Plan (02/04/2019 2:45 PM PIT LABORER): Neti-pot followed Flonase 2 sprays into each nostril while looking down over the sink, do not sniff in or blow nose after use. TMJ dysfunction discussed and Handout provided Allergic rhinitis 02/04/2019 Assessment & Plan (03/03/2021 10:54 AM CDT): Continue Nasal saline and Flonase and Benadryl as needed Will await for financial assistance form prior to ordering CT requested by Dr. Barker Assessment & Plan (10/19/2020 9:08 AM PIT LABORER): - history of Flonase use intermittently as was [id number]-aux-[id number] allergy medications - continue with current therapy and also follows up with ENT in the past has been recommended to also use nasal saline spray along with Flonase and antihistamines to improve nasal congestion. Assessment & Plan (10/12/2020 8:28 PM PIT LABORER): Nasal saline spray (Simply saline, Little Remedies, Noma, Dairy) 2 second sprays or 2 squeezes into each nostril while looking down over the sink, do not need to sniff in. Followed by Flonase 2 sprays into each nostril while looking down over the sink, do not sniff in or blow nose after use for at least 30 minutes in the evening Continue Benadryl in the evening or Zyrtec (cetirizine) 10 mg Elevate head of bed to 30 degrees to improve nasal congestion Assessment & Plan (04/28/2020 4:06 PM CDT): Nasal saline spray (Simply saline, Little Remedies, Noma, Dairy) 2 second sprays or 2 squeezes into each nostril while looking down over the sink, do not need to sniff in. Followed by Flonase 2 sprays into each nostril while looking down over the sink, do not sniff in or blow nose after use for at least 30 minutes Start Cetirizine (Zyrtec) 10 mg Avoid picking at tonsil stones Continue salt water or mouthwash rinse, Try Water pik after meals Follow up with Dentist and ask about probiotic for tonsiliths Assessment & Plan (02/04/2019 2:46 PM PIT LABORER): Neti-pot followed Flonase 2 sprays into each nostril while looking down over the sink, do not sniff in or blow nose after use. TMJ arthritis 02/04/2019 Assessment & Plan (03/03/2021 10:54 AM CDT): Continue Nasal saline and Flonase and Benadryl as needed Will await for financial assistance form prior to ordering CT requested by Dr. Barker Continue to work with Dr. Barker Assessment & Plan (02/04/2019 2:46 PM PIT LABORER): TMJ dysfunction discussed and Handout provided Chronic tonsillitis 02/04/2019 Assessment & Plan (10/19/2020 9:09 AM PIT LABORER): - patient follows up with ENT and states she has an upcoming surgery for tonsillectomy Assessment & Plan (02/04/2019 2:46 PM PIT LABORER): Continue good oral hygiene Resolved Problems Problem Noted Date Diagnosed Date Resolved Date Class 1 obesity due to exces s calories without serious comorbidity with body mass index (BMI) of 32.0 to 32.9 in adult 02/14/202312/2023 Assessment & Plan (05/21/2023 10:34 AM CDT): Wt Readings from Last 3 Encounters: 05/20/23 86 kg (189 lb 9.5 oz) 02/14/23 86 kg (189 lb 9.5 oz) 07/19/22 78.5 kg (173 lb) Body mass index is 32.77 kg/m . - chronic condition, not at goal - weight gain noted - BMI Follow-up includes: nutrition counseling, exercise counseling and education provided - co-morbidities - hypertension Assessment & Plan (02/14/2023 3:18 PM CDT): Wt Readings from Last 3 Encounters: 02/14/23 86 kg (189 lb 9.5 oz) 07/19/22 78.5 kg (173 lb) 07/06/22 77.4 kg (170 lb 10.2 oz) Body mass index is 32.54 kg/m . - chronic condition, not at goal - weight gain noted - BMI Follow-up includes: nutrition counseling, exercise counseling and education provided Cervical polyp 02/28/2021 01/30/2022 Assessment & Plan (01/04/2022 2:08 PM PIT LABORER): Polyp removed without difficulty RTO prn. Assessment & Plan (05/25/2021 4:13 AM CDT): - she has hx of cervical polyp - noted on pelvic exam 01/2021 - not bleeding on well woman exam on 01/2021, desires to have it removed - she recall she has had 3 cervical polyps before in prior that was removed and was benign - referral to OBGYN placed for cervical polyp removal Assessment & Plan (03/02/2021 12:43 PM CDT): - she has hx of cervical polyp - noted on pelvic exam 01/2021 - also noted to have a cervical polyp, not bleeding on well woman exam today - she recall she has had 3 cervical polyps before in prior that was removed and was benign Breast discharge 02/28/2021 01/30/2022 Assessment & Plan (02/28/2021 3:34 PM CDT): - she has small white, milk like discharge since her last about 10 years ago - has had normal screening mammogram - will check for prolactin level Overweight with body mass in dex (BMI) of 28 to 28.9 in adult 10/19/2020 02/14/2023 Assessment & Plan (02/16/2022 4:33 AM CDT): Wt Readings from Last 3 Encounters: 01/30/22 76.6 kg (168 lb 12.8 oz) 12/28/21 75.9 kg (167 lb 6.4 oz) 10/02/21 79.3 kg (174 lb 12.8 oz) Body mass index is 28.97 kg/m . - chronic, stable, not at goal weight - following with certified athletic trainer, continue to do so - stay physically active, follow diet advice from certified athletic trainer Assessment & Plan (02/22/2021 1:28 PM CDT): - she has gained about 20 lbs in the past year - not happy with her weight, she is also noticing elevated Blood pressure - she is wiling to get some help with nutritional counseling - referral plced Assessment & Plan (10/19/2020 9:09 AM PIT LABORER): - BMI Follow-up includes: nutrition counseling, exercise counseling and education provided Laryngopharyngeal reflux (LPR) 04/13/2019 10/19/2020 Assessment & Plan (04/13/2019 5:45 PM CDT): Start Zantac (ranitidine) 300 mg at bedtime daily Follow up in 2-3 months LPR discussed and Handout provided Encounters Date Type Department Care Team Description 08/31/2025 12:30 PM CDT Office Visit [facility] [place] [address] [facility] [address] [place] [address] Juanis Spears, COGNOS DEVELOPER Hypertension, essential (Primary Dx); AISHWARYA (generalized anxiety disorder); Class 1 obesity due to excess calories with body mass index (BMI) of 31.0 to 31.9 in adult, unspecified whether serious comorbidity present 08/30/2025 10:15 AM CDT Therapy [facility] [address] [place] [id number] Hailee Wakefield, PT Chronic left shoulder pain (Primary Dx) 08/27/2025 8:45 AM CDT Therapy [facility] [address] [place] [id number] Nelly Tejeda, PT Chronic left shoulder pain (Primary Dx) 08/23/2025 10:15 AM CDT Therapy [facility] [address] [place] [address] Hailee Wakefield, PT Chronic left shoulder pain (Primary Dx) 08/17/2025 9:45 AM CDT Therapy [facility] [address] [place] [address] Harriet Solitario, TELEVISION CABINET FINISHER Chronic left shoulder pain (Primary Dx) from Last 3 Months Immunizations Immunization Administration Dates Next Due Influenza, Unspecified 01/31/2024(Deferr ed: Patient Refused),02/14/2023(Deferred: Patient Refused),09/01/2021(Deferred: Patient Refused),10/17/2020(Deferred: Patient Refused),09/01/2020(Deferred: Patient Refused),09/01/2020(Deferred: Patient Refused),09/01/2020(Deferred: Patient Refused),09/01/2019(Deferred: Patient Refused) Tdap 11/22/2020 Surgical History Surgery Date Site/Laterality Comments HERNIA REPAIR COLONOSCOPY DILATION AND CURETTAGE OF UTERUS SALPINGECTOMY Bilateral Medical History Medical History Date Comments Hypertension Headache, tension-type Chronic constipation Dysphagia Anxiety Class 1 obesity due to exces s calories without serious comorbidity with body mass index (BMI) of 32.0 to 32.9 in adult 02/14/2023 Family History Medical History Relation Name Comments Hypertension Mother Breast cancer Neg Hx Cancer Neg Hx no colon, 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 No 12/28/2021 Within the last year, have y ou been humiliated or emotionally abused in other ways by your partner or ex-partner? No Within the last year, have y ou been kicked, hit, slapped, or otherwise physically hurt by your partner or ex-partner? No 12/28/2021 Within the last year, have y ou been raped or forced to have any kind of sexual activity by your partner or ex-partner? No 12/28/2021 PHQ-2 Answer Date Recorded PHQ-2 Total Score (If total score is 3 or more points, staff should administer the PHQ-9) 0 08/31/2025 AUDIT-C Answer Date Recorded Q1: How often do you have a drink containing alcohol? Never 08/31/2025 Q2: How many drinks containi ng alcohol do you have on a typical day when you are drinking? Patient does not drink Q3: How often do you have si x or more drinks on one occasion? Never 08/31/2025 Personal Safety Answer Date Recorded Have you ever been in or are you currently in a harmful physical or emotional relationship or is someone making you feel afraid or unsafe? 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 Not on file Not on file Not on f ile Obstetrics History Para Term AB IAB SAB Ectopic Multiple Livin g Live Births 4 1 1 Date Outcome GA Total Labor Labor/2nd/3rd Weight Sex Type Anes PTL Mary A1 A5 Name Clin Term Last Filed Vital Signs Vital Sign Reading Time Taken Comments Blood Pressure 144/92 08/31/2025 12:35 PM CDT Pulse 78 08/31/2025 12:35 PM CDT Temperature 36.6 C (97.9 F) 05/18/2025 10:38 AM CDT Respiratory Rate 16 08/31/2025 12:35 PM CDT Oxygen Saturation 98% 08/31/2025 12:35 PM CDT Inhaled Oxygen Concentration - - Weight 85.3 kg (188 lb) 08/31/2025 12:35 PM CDT Height 165.1 cm (5' 5) 08/31/2025 12:35 PM CDT Body Mass Index 31.28 08/31/2025 12:35 PM CDT Plan of Treatment Upcoming Encounters Date Type Department Care Team (Late st Contact Info) Description 01/20/2026 8:00 AM PIT LABORER Hospital Encounter [address] [address] Digna Romo MD [address] [place] [address] [place] [address] 01/20/2026 8:00 AM PIT LABORER - 01/20/2026 8:30 AM PIT LABORER Surgery [address] [address] Digna Romo MD [address] [place] [address] [place] [address] COLONOSCOPY Scheduled Procedures Name Priority Associated Diagnoses Date/Ti me COLONOSCOPY Encounter for screening colonoscopy 01/20/2026 8:00 AM PIT LABORER Health Maintenance Due Date Last Done Comments Colon Cancer Screening-Colonoscopy 1980 Cervical Cancer Screening 07/19/2025 07/19/2022, Influenza Vaccine (#1) 2025 Regular Well Visit/Exam 18-64 05/18/2026 05/18/2025, 05/18/2025, 03/10/2024, Additional history exists Breast Cancer Screening-Mammogram 07/07/2026 07/07/2025, 11/16/2024, 05/15/2024, Additional history exists Depression Screening 08/31/2026 08/31/2025, 05/18/2025, 06/23/2024, Additional history exists DTaP/Tdap/Td Vaccine (2 - Td or Tdap) 11/22/2030 11/22/2020 Hepatitis C Screening Completed 03/13/2024 Hepatitis B Screening Completed 05/18/2025 HPV Vaccines Aged Out No longer eligi ble based on patient's age to complete this topic Pneumococcal vaccine <65 Aged Out No longer eligible based on patient's age to complete this topic Procedures Procedure Name Priority Date/Time Associated Diagnosis Comments SCREENING MAMMOGRAM BILATERAL W DMITRIY Schedule Routine, Read Routine (OP Routine) 07/07/2025 12:49 PM CDT Visit for screening mammogram HEPATITIS C ANTIBODY Routine 03/13/2024 8:42 AM CDT Encounter for hepatitis C screening test for low risk patient PAP AND HIGH RISK HPV, REFLEX TO GENOTYPING Routine 07/19/2022 11:47 AM CDT Well woman exam from Last 3 Months or Most Recently Relevant to Health Maintenance Results * SCREENING MAMMOGRAM BILATERAL W MDITRIY (07/07/2025 12:49 PM CDT) Anatomical Region Laterality Modality Breast Bilateral Mammography Impressions 07/07/2025 1:23 PM CDT Bilateral No evidence of malignancy in either breast. OVERALL BI-RADS FINAL ASSESSMENT: 1 - Negative RECOMMENDATION: Recommend bilateral annual screening mammography. Narrative 07/07/2025 1:23 PM CDT EXAMINATION: SCREENING MAMMOGRAM BILATERAL W DMITRIY: 07/07/2025 COMPARISON: Relevant prior studies available at the time of interpretation were reviewed, including the most recent mammogram on: 11/16/2024. TECHNIQUE: Mammography was performed with 2D and 3D digital breast tomosynthesis (DBT) images. CAD was utilized. BREAST PARENCHYMAL COMPOSITION: There are scattered areas of fibroglandular density. FINDINGS: Bilateral There is no suspicious mass, calcification, or architectural distortion in either breast. Juanis Spears NP IMG MAMMO PROCEDURES Fi nal Result * Hepatitis C antibody Blood (03/13/2024 8:42 AM CDT) Hep C Ab Nonreactive Nonreactive Comment: Interpretive Data Nonreactive: Antibodies to HCV not detected. Does NOT exclude the possibility of recent exposure to HCV. Equivocal: Equivocal for HCV antibodies. Supplemental molecular testing will be automatically performed to determine infection status in accordance with current CDC screening recommendations. Reactive: Positive for HCV antibodies. This may represent current or past HCV infection. Supplemental molecular testing will be automatically performed to determine current infection status in accordance with current CDC screening recommendations. Interpretive data was last revised on 2020. Testing performed by: [facility], [address] [place] [address]., [id number] Blood 03/13/2024 8:42 AM CDT 03/13/2024 2:39 PM CDT Junais Spears NP LAB MICROBIOLOGY - [facility] ORDERABLES Final Result [facility]) [address] [facility] Department [place] [address] * Pap and High Risk HPV, reflex to Genotyping (07/19/2022 11:47 AM CDT) CLINICAL INFORMATION: [facility] Comment:SCREENING LMP [facility] Comment:07/06/2022 Previous Pap [facility] Comment:INFORMATION NOT PROV IDED Prev. Bx [facility] Comment:INFORMATION NOT PROV IDED SOURCE: [facility] Comment:Cervix, Endocervix Pap, specimen adequacy [facility] Comment: Satisfactory for evaluation. Endocervical/transformation zone component present. HPV interp [facility] Comment: Negative for intraepithelial lesion or malignancy. Reactive cellular changes associated with repair COMMENTS [facility] Comment:HYPERKERATOSIS Restaurant Culinary Manager Que [facility] Comment: DDS, CT(ASCP) CT screening location: [place] [address] [place] [address] Pathologist [facility] Comment: Farhat Blake M.D., Board Certified in Anatomic Pathology and Cytopathology. (electronic signature) Comment [facility] Comment: EXPLANATORY NOTE: The Pap is a screening test for cervical cancer. It is not a diagnostic test and is subject to false negative and false positive results. It is most reliable when a satisfactory sample, regularly obtained, is submitted with relevant clinical findings and history, and when the Pap result is evaluated along with historic and current clinical information. Human papillomavirus DNA, High Risk E6/E7 Not Detected NOT DETECTED Jeannette [facility] /Alexandr [place]ary[place]o [place] Comment: Not Detected High Risk HPV types (16,18,31,33,35,39,45,51,52, 56,58,59,66,68) were not detected. Other HPV types which cause anogenital lesions may be present. The significance of the other types of HPV in malignant processes has not been established. Methodology: Real Time PCR Thin prep 07/19/2022 11:4 7 AM CDT 07/20/2022 6:44 AM CDT Hilary Winn MD LAB CYTOLOGY ORDERA BLES Final Result [place] [address] [place] [address] Jeannette Saleh/[place] [address] [place] [address] from Last 3 Months or Most Recently Relevant to Health Maintenance Insurance [facility] OPEN ACCESS Advance Directives For more information, please contact: [phone] * Full Code (Latest Code Status on File) Date Activated Date Inactivated Comments 09/07/2019 10:02 AM 09/07/2019 3:58 PM Care Teams Corporate Wellness Coordinator Relationship Specialty Start Date End Date Juanis Spears COGNOS DEVELOPER [address] [facility] [address] [place] [address] PCP - General Family Medicine 05/18/25 Tisha Justice DO [address] [facility] [address] Samuels [facility] [address] [place] [address] Consulting Physician Otolaryngology 10/17/20 Hilary Winn MD [address] [facility] [address] [place] [address] [place] [address] Consulting Physician Obstetrics and Gynecology 07/06/22
--- OUTSIDE RECORDS SUMMARY | 2025-11-12 19:20 | XMS_ITS | Encounter Summary ---
Author Organization [facility] Healthcare Address [address] [place] [address] Care Team Providers Care Stamp Machine Servicer Name Role Phone José Miguel Hensley MD Primary Care Provider Tisha Justice DO Unavailable [phone] Hilary Winn MD Unavailable [phone] José Miguel Hensley MD Primary Care Provider Juanis Spears NP Primary Care Provider Encounter Details Date Type Department Care Team (Late st Contact Info) Description 05/09/2021 Telephone [facility] [address] [place] [id number] Anne Reid, [facility] Social History Tobacco Use Types Packs/Day Years Used Date Smoking Tobacco: Never Smokeless Tobacco: Never Alcohol Use Standard Drinks/Week Comments No 0 (1 standard drink = 0.6 oz pur e alcohol) PHQ-2 Answer Date Recorded PHQ-2 Total Score (If total score is 3 or more points, staff should administer the PHQ-9) 0 04/11/2021 Comments No Sex and Gender Information Value Date Recorded Sex Assigned at Not on file Legal Sex Female 12:35 PM PREVENTATIVE MAINTENANCE TECHNICIAN Gender Identity Not on file Sexual Orientation Not on file 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 Not on file Not on file Not on f ile documented as of this encounter Plan of Treatment Upcoming Encounters Date Type Department Care Team (Late st Contact Info) Description 01/20/2026 8:00 AM PREVENTATIVE MAINTENANCE TECHNICIAN Hospital Encounter [facility] [address] [place] [address] Digna Romo MD [address] [facility] [address] [place] [address] 01/20/2026 8:00 AM PREVENTATIVE MAINTENANCE TECHNICIAN - 01/20/2026 8:30 AM PREVENTATIVE MAINTENANCE TECHNICIAN Surgery [facility] [address] [place] [address] Digna Romo MD [address] [facility] [place] [address] COLONOSCOPY Scheduled Procedures Name Priority Associated Diagnoses Date/Ti me COLONOSCOPY Encounter for screening colonoscopy 01/20/2026 8:00 AM PREVENTATIVE MAINTENANCE TECHNICIAN documented as of this encounter Visit Diagnoses Not on filedocumented in this encounter Additional Health Concerns Infection Onset Date Last Indicated Resolved Time COVID: Suspected 06/28/2022 07/05/2022 06/29/2022 3:05 AM CDT COVID: Suspected 07/05/2022 07/05/2022 07/05/2022 1:26 PM CDT documented as of this encounter Care Teams Stamp Machine Servicer Relationship Specialty Start Date End Date José Miguel Hensley MD PCP - General Family Medicine 10/17/20 05/09/25 José Miguel Hensley MD [address] [address] PCP - General Family Medicine 05/10/25 05/17/25 Juanis Spears NP [address] [facility] [address] [place] [address] PCP - General Family Medicine 05/18/25 Tisah Justice DO [address] [facility] [address] [place] [address] Consulting Physician Otolaryngology 10/17/20 Hilary Winn MD [address] [facility] [address] Samuels [address] [address] Consulting Physician Obstetrics and Gynecology 07/06/22 documented as of this encounter
[2025-11-12 19:22] VITALS: BP 182/96; PULSE 87; RESP 20; TEMP 37.2; O2SAT 98
--- NOTE | 2025-11-12 19:42 | ED.URI ---
HPI - URI/Sore Throat General Chief Complaint: Upper Respiratory Infection Stated Complaint: cough/throat/aches Time Seen by Provider: 11/12/25 19:25 Source: patient and RN notes reviewed Mode of arrival: ambulatory Limitations: no limitations History of Present Illness HPI Narrative: 45-year-old female patient presents to the [facility] Care complaining of upper respiratory symptoms for 3 weeks. Patient reports cough, congestion, mucopurulent nasal drainage, sinus pressure, fatigue, and itchy ears. Patient says symptoms are not getting better. Patient has any fevers, body aches, chills, nausea vomiting diarrhea, chest pain, breathing problems, or any other symptoms. Patient taking ocny-urm-saisbiv cold and flu medication the relief. Patient denies any significant past medical problems. Related Data Allergies Allergy/AdvReac Type Severity Reaction Status Date / Time No Known Allergies Allergy Verified 11/12/25 19:28 Review of Systems Review of Systems: CONSTITUTIONAL: Denies fever, chills, or sweats. Positive for fatigue. EYES: Denies visual changes, redness, or discharge. ENT: Denies rhinorrhea, sore throat, or otalgia. Positive for congestion and sinus pressure CARDIOVASCULAR: Denies chest pain, palpitations, or edema. RESPIRATORY: Positive for cough. Negative for dyspnea. GASTROINTESTINAL: Denies abdominal pain, nausea, vomiting, or diarrhea. GENITOURINARY: Denies dysuria or hematuria. SKIN: Denies rash or itching. MUSCULOSKELETAL: Denies back pain, joint pain, or myalgia. NEUROLOGIC: Denies headache, numbness, or weakness. PSYCHIATRIC: Denies anxiety or depression. All other systems reviewed are negative, except as documented in HPI. PMFSH Past Medical History Medical History Hypertension Comments At the time of my signature, I reviewed and agree with the nursing past medical, surgical, social, and family history. There is no relevant family history pertinent to the patient complaint. Exam Narrative: GENERAL: This is a well-nourished, well-developed adult, in no apparent distress. They are non ill-appearing, nontoxic appearing. HEAD: normocephalic, atraumatic. EYES: Sclera clear/white. Conjunctiva normal. Vision is grossly intact. Extraocular movements intact EARS: External ears normal, auditory canals clear and without drainage, TMs normal without perforation. Hearing grossly intact. NOSE: External nose normal with no obvious nasal discharge, nasal turbinates erythematous with exudate, no rhinorrhea. Maxillary and frontal sinus tenderness to palpation. THROAT: Mucous membranes moist, posterior pharynx erythematous. Postnasal drip present. Uvula midline. NECK: Neck supple, non-tender without lymphadenopathy, masses or thyromegaly. CARDIOVASCULAR: Regular rate and rhythm without murmurs, gallops, or rubs. RESPIRATORY: Clear to auscultation. Breath sounds equal bilaterally. No wheezes, rales, or rhonchi. SKIN: warm, Dry, intact with no suspicious lesions or rash, good texture and turgor. NEURO: awake, alert, and oriented to person, place and time. There were no obvious focal neurologic abnormalities. EXTREMITIES: No joint tenderness, effusion, or edema noted. BACK: Nontender without deformity. No CVA tenderness. Course Course Level of Care: Express Care Visit Vital Signs Vital signs: Vital Signs Temperature 98.9 F 11/12/25 19:22 Pulse Rate 87 11/12/25 19:22 Respiratory Rate 20 11/12/25 19:22 Blood Pressure 182/96 H 11/12/25 19:22 Pulse Oximetry 98 11/12/25 19:22 Oxygen Delivery Room Air 11/12/25 19:22 Temperature 98.9 F 11/12/25 19:22 Pulse Rate 87 11/12/25 19:22 Respiratory Rate 20 11/12/25 19:22 Blood Pressure 182/96 H 11/12/25 19:22 Pulse Oximetry 98 11/12/25 19:22 Oxygen Delivery Room Air 11/12/25 19:22 [facility] MDM Narrative Medical decision making narrative: Given patient's length of symptoms likely she has bacterial sinusitis. Will treat her with Augmentin. Discussed supportive care. Discussed physical exam findings. Advised supportive measures and signs/symptoms to go to the ER. Pt is appropriate for outpt treatment and f/u. Differential Diagnosis Differential Diagnosis: Differential diagnostic considerations for upper respiratory infection include upper respiratory infection, croup, otitis media, sinusitis, viral infection, bronchitis, influenza, pharyngitis, strep, uvulitis. Critical Care Time Critical Care Time Critical Care Time: No Discharge Plan Discharge Clinical Impression: Sinusitis Qualifiers: Sinusitis location: unspecified location Chronicity: acute Recurrence: non-recurrent Qualified Code(s): J01.90 - Acute sinusitis, unspecified Patient Disposition: Home Condition: Stable Instructions: Antibiotic Form, Sinusitis (ED) Additional Instructions: Take the antibiotics as directed and complete the course even if you start to feel better. You may use a Neti pot saline rinse 3 times a day with lukewarm distilled water Continue to take Tylenol or Motrin as needed for pain or fevers. Use a humidifier or vaporizer at night. Drink plenty of water. 8-10 glasses per day. Use flonase 2 times per day for 5 days then as needed Take mucinex 2 times per day and be sure to take with 8oz of water. Follow up with Primary provider in 3-5 days Please go to the ER if he develops any difficulty breathing, chest pain, nausea, vomiting, worsening symptoms, or any other concerns Patient Language: Indonesian Prescriptions: New amoxicillin-pot clavulanate 875-125 mg tablet 1 tablet PO Q12H 7 Days Qty: 14 0RF Follow-up/Referrals: PHYSICIAN NOT ON STAFF,NONSTAFF [Primary Care Provider] Time of Disposition: 19:37
== END 2025-11-12 19:41 | disposition home or self-care (01) ==
DX: J01.90 Acute sinusitis, unspecified (principal); I10 Essential (primary) hypertension
CPT/HCPCS: 99213; G0463